=== PATIENT | female | born 1945 | race African-American/Black ===

== ENCOUNTER 2016-11-26 04:19 | Inpatient (IN) | payer MEDICARE, MEDICAID ==
[2016-11-26] VITALS (9 sets, daily range): BP systolic 78–114; BP diastolic 55–65
[~2016-11-26] VITALS: Ht 160 cm; Wt 70.8 kg
[2016-11-26 05:05] LABS: BASOPHILS % (AUTO) 1.3 % (0.0-2.0); EOSINOPHILS % (AUTO) 1.9 % (0.0-3.0); LYMPHOCYTES % (AUTO) 19.1 % (20.0-45.0); MEAN CORPUSCULAR HEMOGLOBIN 29.4 PG (27.0-31.0); MEAN CORPUSCULAR HGB CONC 31.5 G/DL (32.0-36.0); MEAN CORPUSCULAR VOLUME 93 FL (80-99); MONOCYTES % (AUTO) 15.4 % (1.0-10.0); NEUTROPHILS % (AUTO) 62.4 % (45.0-75.0); PLATELET COUNT 251 K/UL (150-450); RED BLOOD COUNT 3.72 M/UL (4.20-5.40); RED CELL DISTRIBUTION WIDTH 16.2 % (11.6-14.8); WHITE BLOOD COUNT 7.2 K/UL (4.8-10.8)
[2016-11-26] MEDS ORDERED: FOLIC ACID1 MG ORAL (05:18)
[2016-11-26] MEDS ORDERED: STIOLTO RESPIMAT4 GM IH (05:18)
[2016-11-26] MEDS ORDERED: ZINC SULFATE220 M1 ORAL (05:18)
[2016-11-26] MEDS ORDERED: ALBUTEROL2.5 MG/3 M INH (05:18)
[2016-11-26] MEDS ORDERED: ASPIR 8181 MG ORAL (05:18)
[2016-11-26 05:19] LABS: APPEARANCE,URINE CLEAR; KETONES,URINE NEGATIVE (NEGATIVE); LEUKOCYTE ESTERASE ,URINE NEGATIVE (NEGATIVE); NITRITE,URINE NEGATIVE (NEGATIVE); PH,URINE 5 (4.5-8.0); PROTEIN,URINE 2+ (NEGATIVE); UROBILINOGEN,URINE NORMAL MG/DL (0.0-1.0)
[2016-11-26 05:20] LABS: TROPONIN I < 0.30 ng/mL (<=0.30)
[2016-11-26 05:23] LABS: ALANINE AMINOTRANSFERASE 22 U/L (3-33); ALBUMIN/GLOBULIN RATIO 0.6 (1.0-2.7); ANION GAP 19 (5-15); ASPARTATE AMINO TRANSFERASE 64 U/L (5-40); CALCIUM 9.9 mg/dL (8.6-10.2); CARBON DIOXIDE 23 mEQ/L (20-30); CHLORIDE 96 mEQ/L (98-107); CREATININE 5.2 mg/dL (0.5-0.9); HEMOLYSIS 52; SODIUM 138 mEQ/L (135-145); TOTAL PROTEIN 7.4 g/dL (6.6-8.7)
[2016-11-26 05:34] LABS: CKMB 4.7 ng/mL (< 3.8)
[2016-11-26 05:36] LABS: BACTERIA,URINE FEW /HPF; RBC,URINE 0-2 /HPF (0 - 2); SQUAMOUS EPITHELIAL CELL,UR FEW /LPF (NONE/OCC); WBC,URINE 0-2 /HPF (0 - 2)
[2016-11-26 05:37] LABS: AMORPHOUS SEDIMENT,UR MODERATE /LPF
--- NOTE | 2016-11-26 06:24 | Emergency Room Report ---
History of Present Illness General Chief Complaint: Constipation Source: EMS (ANDRIY VARGAS M.D.) Source: Patient, Family Member (Ramon Brown M.D.) Present Illness HPI 71-year-old female presents ED for evaluation. Daughter at bedside states that patient has been constipated times one week. Notes history of constipation but states that she called 911 because the patient was vomiting. Patient denies any fevers or chills. States her abdomen feels hard. Denies any chest pain or shortness of breath. Notes history of lung CA. Patient is currently in hospice care. Per EMS patient is also noted to be hypotensive. No aggravating or relieving factors. Denies any other associated symptom (ANDRIY VARGAS M.D.) HPI Please see hx by Dr. Vargas. (Ramon Brown M.D.) Allergies: Coded Allergies: No Known Allergies (Unverified , 11/26/16) Patient History Past Medical History: other - lung cancer Pertinent Family History: none Social History: Denies: alcohol use, drug use, smoking Immunizations: UTD Reviewed Nursing Documentation: PMH: Agreed, PSxH: Agreed (ANDRIY VARGAS M.D.) Nursing Documentation-PMH Hx Cardiac Problems: Yes - TRIPLE BYPASS Hx Cancer: Yes - LUNG CA (ANDRIY VARGAS M.D.) Review of Systems All Other Systems: negative except mentioned in HPI (ANDRIY VARGAS M.D.) Physical Exam Vital Signs Date Time Temp Pulse Resp B/P Pulse Ox O2 Delivery O2 Flow Rate FiO2 11/26/16 04:22 97.5 99 22 74/54 100 Nasal Cannula 2.0 Sp02 EP Interpretation: reviewed, normal General Appearance: alert, GCS 15, non-toxic, mild distress Head: normocephalic Eyes: bilateral eye PERRL, bilateral eye normal inspection ENT: hearing grossly normal, normal pharynx, no angioedema, normal voice Neck: full range of motion, supple/symm/no masses Respiratory: decreased breath sounds, speaking full sentences Cardiovascular #1: regular rate, rhythm, no edema Gastrointestinal: normal bowel sounds, non tender, soft, non-distended, no guarding, no rebound Rectal: deferred Genitourinary: no CVA tenderness Musculoskeletal: normal inspection Neurologic: alert, oriented x3, responsive, motor strength/tone normal, sensory intact, speech normal Psychiatric: normal inspection Skin: normal inspection Lymphatic: normal inspection (ANDRIY VARGAS M.D.) Procedures Critical Care Time Critical Care Time Total Critical Care Time: 45 min bedside evaluation and treatment excludes procedures (EKG). Reason for critical care: hypotension, respiratory distress/BIPAP, discussion with family and patient of level of care Possible complications: hypotension, hypertension, IA, shock, arrhythmias, metabolic acidosis, end organ damage, respiratory failure. Interventions: Fluid boluses, breathing treatments, BIPAP, discussion of level of care, focus on analgesia/enema/ativan/hyperkalemia Course: Patient signed out to me with metastatic lung CA recently removed from hospice care. Hypotensive initially. Fluid bolus given. Possible aspiration when given PO fluids with increased respiratory distress with wheezing. Albuterol given. Mild hyperkalemia also treated with this. Her main complaint of constipation addressed/treated. Hypotensive again - fluids again bolused. Still with resp distress. BIPAP begun. Ativan given. Soime improvement. Able to remove bipap and BP also better. Discussion of code status with daughter and patient . Daughter reluctant to make DNR, but patient in agreement. Discussed with PMD (code status changed). Patient improved. Consultations: nursing staff, EMS, family, PMD, RT Performed by: Dr. Brown Tolerated well condition = serious (Ramon Brown M.D.) Medical Decision Making Diagnostic Impression: Primary Impression: CKD (chronic kidney disease) Qualified Codes: N18.9 - Chronic kidney disease, unspecified Additional Impressions: Weakness Pleural effusion Constipation Qualified Codes: K59.00 - Constipation, unspecified Hyperkalemia Stage 4 lung cancer Qualified Codes: C34.90 - Malignant neoplasm of unspecified part of unspecified bronchus or lung Labs Test 11/26/16 04:45 White Blood Count 7.2 K/UL (4.8-10.8) Red Blood Count 3.72 M/UL (4.20-5.40) Hemoglobin 10.9 G/DL (12.0-16.0) Hematocrit 34.7 % (37.0-47.0) Mean Corpuscular Volume 93 FL (80-99) Mean Corpuscular Hemoglobin 29.4 PG (27.0-31.0) Mean Corpuscular Hemoglobin Concent 31.5 G/DL (32.0-36.0) Red Cell Distribution Width 16.2 % (11.6-14.8) Platelet Count 251 K/UL (150-450) Mean Platelet Volume 8.0 FL (6.5-10.1) Neutrophils (%) (Auto) 62.4 % (45.0-75.0) Lymphocytes (%) (Auto) 19.1 % (20.0-45.0) Monocytes (%) (Auto) 15.4 % (1.0-10.0) Eosinophils (%) (Auto) 1.9 % (0.0-3.0) Basophils (%) (Auto) 1.3 % (0.0-2.0) Urine Color Yellow Urine Appearance Clear Urine pH 5 (4.5-8.0) Urine Specific [place] 1.015 (1.005-1.035) Urine Protein 2+ (NEGATIVE) Urine Glucose (UA) Negative (NEGATIVE) Urine Ketones Negative (NEGATIVE) Urine Occult Blood Negative (NEGATIVE) Urine Nitrite Negative (NEGATIVE) Urine Bilirubin Negative (NEGATIVE) Urine Urobilinogen Normal MG/DL (0.0-1.0) Urine Leukocyte Esterase Negative (NEGATIVE) Urine RBC 0-2 /HPF (0 - 2) Urine WBC 0-2 /HPF (0 - 2) Urine Squamous Epithelial Cells Few /LPF (NONE/OCC) Urine Amorphous Sediment Moderate /LPF (NONE) Urine Bacteria Few /HPF (NONE) Sodium Level 138 mEQ/L (135-145) Potassium Level 5.0 mEQ/L (3.4-4.9) Chloride Level 96 mEQ/L (98-107) Carbon Dioxide Level 23 mEQ/L (20-30) Anion Gap 19 (5-15) Blood Urea Nitrogen 78 mg/dL (7-23) Creatinine 5.2 mg/dL (0.5-0.9) Estimat Glomerular Filtration Rate mL/min (>60) Glucose Level 90 mg/dL (74-106) Lactic Acid Level 1.90 mmol/L (0.66-2.22) Calcium Level 9.9 mg/dL (8.6-10.2) Total Bilirubin 0.7 mg/dL (0.0-1.2) Aspartate Amino Transf (AST/SGOT) 64 U/L (5-40) Alanine Aminotransferase (ALT/SGPT) 22 U/L (3-33) Alkaline Phosphatase 823 U/L (35-104) Total Creatine Kinase 29 U/L (26-140) Creatine Kinase MB 4.7 ng/mL (< 3.8) Creatine Kinase MB Relative Index 16.2 Troponin I < 0.30 ng/mL (<=0.30) Total Protein 7.4 g/dL (6.6-8.7) Albumin 2.8 g/dL (3.5-5.2) Globulin 4.6 g/dL Albumin/Globulin Ratio 0.6 (1.0-2.7) (ANDRIY VARGAS M.D.) ER Course Please review note from Dr. Vargas. CT reviewed by me. See documentation. The patient was given water PO. Some coughing after that. She was suctioned. She is wheezing afterwards. Albuterol was ordered. This will help to treat the mildly high potassium also. Patient also complaining about constipation and an enema was ordered. The patient will be admitted. Dr. Hinojosa is contacted. Enema given. Rectal pain. This treated also. Patient in moderate respiratory distress. BiPAP ordered. Improved with BIPAP and albuterol (also ativan). BP better. Discussed code status with daughter and patient. Dr. Hinojosa notified. See critical care note. (Ramon Brown M.D.) EKG Diagnostic Results Rate: normal Rhythm: NSR ST Segments: no acute changes ASA given to the pt in ED: No (ANDRIY VARGAS M.D.) Rate: tachycardiac ST Segments: no acute changes (Ramon Brown M.D.) Rhythm Strip Diag. Results EP Interpretation: yes Rhythm: NSR, no PVC's, no ectopy (ANDRIY VARGAS M.D.) EP Interpretation: yes Rhythm: no PVC's, no ectopy, other - ST (Ramon Brown M.D.) Chest X-Ray Diagnostic Results EP Interpretation: Yes Findings: no pneumothorax, no acute cardiopulmonary disease, other - large R effusion. portacath noted Number of Views: 1 (ANDRIY VARGAS M.D.) CT/MRI/US Diagnostic Results CT/MRI/US Diagnostic Results : Imaging Test Ordered: abd/pelvis Impression Liver mass Diverticulae/no diverticulitis No bowel obstruction RLL opacities L pulm masses bony mets (Ramon Brown M.D.) Last Vital Signs Date Time Temp Pulse Resp B/P Pulse Ox O2 Delivery O2 Flow Rate FiO2 11/26/16 05:13 98/64 11/26/16 04:59 97.5 92 20 100 Nasal Cannula 2.0 Status: improved (ANDRIY VARGAS M.D.) Last Vital Signs Date Time Temp Pulse Resp B/P Pulse Ox O2 Delivery O2 Flow Rate FiO2 11/26/16 14:00 97.7 95 20 93/60 100 Nasal Cannula 2.0 11/26/16 13:14 50 Status: improved (Ramon Brown M.D.) Disposition: ADMITTED INPATIENT Condition: Critical Referrals: NOT CHOSEN JONA/,REFERRING (PCP) ANDRIY VARGAS M.D. Nov 26, 2016 06:24 Ramon Brown M.D. Nov 26, 2016 07:13
[2016-11-26] MEDS ORDERED: Fleet's Enema 133ml RECTAL ONE (06:45)
[2016-11-26] MEDS ORDERED: Albuterol ud Inhalation HHN ONE ×2 (06:45→08:30)
[2016-11-26] MEDS ORDERED: Ipratropium 0.02% Inh Soln 2.5ml UD HHN ONE (06:45)
[2016-11-26] MEDS ORDERED: Lidocaine HCl 2% Jelly 5ml Tube TOPIC ONE (07:45)
[2016-11-26] MEDS ORDERED: Ketorolac 30mg Inj IV ONE (08:15)
[2016-11-26] MEDS ORDERED: Mylanta II UD 30ml ORAL PRN (08:30)
[2016-11-26] MEDS ORDERED: Morphine Sulfate 2mg/ml Inj IVP PRN (08:30)
[2016-11-26] MEDS ORDERED: Miralax 17gm pkt ORAL PRN (08:30)
[2016-11-26] MEDS ORDERED: LORazepam Inj 2mg/ml 1ml IV PRN (08:30)
[2016-11-26] MEDS ORDERED: Zolpidem 5mg tab ORAL PRN (08:30)
[2016-11-26] MEDS ORDERED: LORazepam Inj 2mg/ml 1ml IV ONE (09:30)
[2016-11-26] MEDS: Heparin 5000 units/ml inj SUBQ SCH ×2 (09:40→21:23)
--- NOTE | 2016-11-26 11:50 | Diagnostic Imaging Report ---
Indication: Chest pain Technique: One view of the chest Comparison: 11/17/2005 Findings: There is near-complete opacification of the right hemithorax, with rightward shift of mediastinum and elevation right hemidiaphragm, consistent with atelectasis of most of the right lung. There is some residual aerated lung present. The left lung and pleural space are clear. There is a right chest port catheter. There are median sternotomy sutures Impression: Near-complete opacification of the right hemithorax, presumably due to near complete atelectasis of the right lung. Other findings as noted
--- NOTE | 2016-11-26 12:14 | Diagnostic Imaging Report ---
Indication: Abdominal pain Technique: Spiral acquisitions obtained through the abdomen and pelvis. No oral contrast utilized, per emergency room physician request No IV contrast utilized, per referring physician request.. Multiplanar reconstructions were generated. Total dose length product a 60 mGycm. CTDIvol(s) 16 mGy Comparison: Reference made to chest CT dated 11/17/2005 Findings: The included lung bases demonstrate extensive opacification of the visualized right lower lobe. This appears to be due to a combination of mass and consolidation. There is some residual aerated lung at the right lung base, but this is markedly disease. There is partial narrowing of the right mainstem bronchus. There is rightward shift of the mediastinum and elevation of the right hemidiaphragm. A densely calcified subcarinal lymph node is demonstrated. A right chest wall port catheter is demonstrated. The catheter tip is at the cavoatrial junction. There are median sternotomy sutures Multiple small masses are seen at the left lung base, appearing spiculated, peripheral, largest measuring 11 mm long axis dimension. Lack of IV contrast limits assessment of the solid organs. Multiple low-attenuation masses are seen within the liver. The largest of these bridges segments 2, 3, 4A, 4B, and measures 8.8 x 6.4 cm. The gallbladder is distended. The wall is not thickened. There is no biliary ductal dilatation. No definite gallstones. The pancreas, spleen, adrenals, right kidney are unremarkable. The left kidney demonstrates some peripheral calcifications, which may be an old involuted calcified cyst. No renal or neural calculi, hydronephrosis, or hydroureter. The bladder contains a Franklin catheter. Air within the bladder is likely related to the Franklin catheterization. The uterus is not visualized, presumed surgically absent. The appendix is not clearly demonstrated. However, no findings to suggest acute appendicitis are evident. There is colonic diverticulosis. No evidence of diverticulitis. No small bowel distention. No free or loculated intraperitoneal air or fluid is demonstrated. Normal caliber abdominal aorta. The distal esophagus, stomach, duodenum are unremarkable. There are are degenerative changes of the lumbar spine. There are scattered osteoblastic lesions within the spine, sacrum, and pelvis. There is evidence of osteolytic destructive change and possibly a pathologic fracture of the right central 10th rib. Note that the [address] demonstrates a spiculated right upper lobe mass. Impression: Extensive opacification of the visualized right lower lobe. This appears to be due to a combination of mass, consolidation, and atelectasis. There is some narrowing of the right mainstem bronchus, and possibly obstruction of the right upper lobe bronchus, which is not visualized. Multiple masses within the liver, presumably multiple hepatic metastases Multiple osteoblastic lesions within the axial skeleton. Osteolytic lesion of the right 10th rib with possible pathologic fracture. These are likely on the basis of metastases Multiple left lower lobe pulmonary mass lesions, presumably metastases Right chest wall port catheter. Evidence of prior median sternotomy Diverticulosis. No evidence of diverticulitis Other findings as noted, including degenerative spondylosis, probable involuted calcified left renal cyst, Franklin catheter, bladder air presumably secondary to the Franklin catheter, surgically absent uterus This agrees with the preliminary interpretation provided overnight by [facility] teleradiology service. The CT scanner at [facility] is accredited by the [employer] and the scans are performed using protocols designed to limit radiation exposure to as low as reasonably achievable to attain images of sufficient resolution adequate for diagnostic evaluation.
--- NOTE | 2016-11-26 13:55 | History and Physical ---
History of Present Illness General Date patient seen: Nov 26, 2016 Reason for Hospitalization: Constipation Present Illness HPI 71-year-old female with hx of Non-small cell lung cancer diagnosed 12 years ago , she has received chemotherapy for the last many years. She was just discharged from [facility] 3 days ago on Hospice, she presents ED for evaluation of her intractable constipation. She has not been eating and had some vomiting. Per EMS she was also noted to be hypotensive. Patient looks chronically ill, can communicate her needs. Allergies: Coded Allergies: No Known Allergies (Unverified , 11/26/16) Medication History Scheduled Aspirin* (Aspir 81*), 81 MG ORAL DAILY, (Reported) Folic Acid* (Folic Acid*), 1 MG ORAL DAILY, (Reported) Zinc Sulfate (Zinc Sulfate*), 220 MG ORAL DAILY, (Reported) Scheduled PRN Albuterol Sulfate* (Albuterol Sulfate Hhn*), Unknown Dose INH Q4H PRN for Shortness of Breath, (Reported) Miscellaneous Medications Tiotropium Br/Olodaterol HCl (Stiolto Respimat Inhal [place]), 4 GM IH, (Reported) Patient History Healthcare decision maker Resuscitation status Advanced Directive on File Past Medical/Surgical History Past Medical/Surgical History: (1) Stage 4 lung cancer Review of Systems All Other Systems: negative except mentioned in HPI Physical Exam General Appearance: WD/WN Lines, tubes and drains: peripheral, central line HEENT: normocephalic, atraumatic Neck: non-tender, normal alignment Respiratory/Chest: chest wall non-tender, lungs clear Cardiovascular/Chest: normal peripheral pulses, normal rate Abdomen: normal bowel sounds, non tender Genitourinary/Rectal: normal genital exam, normal rectal exam Skin Exam: normal pigmentation Neurologic: resident manager II-XII grossly normal Last 24 Hour Vital Signs Date Time Temp Pulse Resp B/P Pulse Ox O2 Delivery O2 Flow Rate FiO2 11/26/16 13:14 97.5 99 19 87/57 100 Nasal Cannula 3.0 50 11/26/16 12:45 99 19 87/57 100 Nasal Cannula 3.0 11/26/16 10:48 101 22 93/59 95 Nasal Cannula 4.0 11/26/16 09:15 114 30 100 Facial 50 11/26/16 08:51 98 20 100 Nasal Cannula 2.0 28 11/26/16 08:44 97.5 102 27 92/60 93 Nasal Cannula 4.0 11/26/16 08:43 97.5 11/26/16 08:42 97.5 11/26/16 08:35 95 18 100 Nasal Cannula 2.0 28 11/26/16 06:55 94 20 100 Nasal Cannula 2.0 28 11/26/16 06:48 97.5 91 20 109/65 100 Nasal Cannula 2.0 11/26/16 06:40 91 18 Nasal Cannula 2.0 28 11/26/16 06:40 91 18 100 Nasal Cannula 2.0 28 11/26/16 05:13 98/64 11/26/16 04:59 97.5 92 20 78/55 100 Nasal Cannula 2.0 11/26/16 04:22 97.5 99 22 74/54 100 Nasal Cannula 2.0 Intake and Output 11/25/16 11/26/16 19:00 07:00 Intake Total 1000 ml Output Total 20 ml Balance 980 ml Intake IV Total 1000 ml Output Urine Total 20 ml Laboratory Tests Test 11/26/16 04:45 11/26/16 06:02 White Blood Count 7.2 K/UL (4.8-10.8) Red Blood Count 3.72 M/UL (4.20-5.40) L Hemoglobin 10.9 G/DL (12.0-16.0) L Hematocrit 34.7 % (37.0-47.0) L Mean Corpuscular Volume 93 FL (80-99) Mean Corpuscular Hemoglobin 29.4 PG (27.0-31.0) Mean Corpuscular Hemoglobin Concent 31.5 G/DL (32.0-36.0) L Red Cell Distribution Width 16.2 % (11.6-14.8) H Platelet Count 251 K/UL (150-450) Mean Platelet Volume 8.0 FL (6.5-10.1) Neutrophils (%) (Auto) 62.4 % (45.0-75.0) Lymphocytes (%) (Auto) 19.1 % (20.0-45.0) L Monocytes (%) (Auto) 15.4 % (1.0-10.0) H Eosinophils (%) (Auto) 1.9 % (0.0-3.0) Basophils (%) (Auto) 1.3 % (0.0-2.0) Urine Color Yellow Urine Appearance Clear Urine pH 5 (4.5-8.0) Urine Specific [place] 1.015 (1.005-1.035) Urine Protein 2+ (NEGATIVE) H Urine Glucose (UA) Negative (NEGATIVE) Urine Ketones Negative (NEGATIVE) Urine Occult Blood Negative (NEGATIVE) Urine Nitrite Negative (NEGATIVE) Urine Bilirubin Negative (NEGATIVE) Urine Urobilinogen Normal MG/DL (0.0-1.0) Urine Leukocyte Esterase Negative (NEGATIVE) Urine RBC 0-2 /HPF (0 - 2) Urine WBC 0-2 /HPF (0 - 2) Urine Squamous Epithelial Cells Few /LPF (NONE/OCC) Urine Amorphous Sediment Moderate /LPF (NONE) H Urine Bacteria Few /HPF (NONE) Sodium Level 138 mEQ/L (135-145) Potassium Level 5.0 mEQ/L (3.4-4.9) H Chloride Level 96 mEQ/L (98-107) L Carbon Dioxide Level 23 mEQ/L (20-30) Anion Gap 19 (5-15) H Blood Urea Nitrogen 78 mg/dL (7-23) H Creatinine 5.2 mg/dL (0.5-0.9) H Estimat Glomerular Filtration Rate mL/min (>60) Glucose Level 90 mg/dL (74-106) Lactic Acid Level 1.90 mmol/L (0.66-2.22) Calcium Level 9.9 mg/dL (8.6-10.2) Total Bilirubin 0.7 mg/dL (0.0-1.2) Aspartate Amino Transf (AST/SGOT) 64 U/L (5-40) H Alanine Aminotransferase (ALT/SGPT) 22 U/L (3-33) Alkaline Phosphatase 823 U/L (35-104) H Total Creatine Kinase 29 U/L (26-140) Creatine Kinase MB 4.7 ng/mL (< 3.8) H Creatine Kinase MB Relative Index 16.2 Troponin I < 0.30 ng/mL (<=0.30) Total Protein 7.4 g/dL (6.6-8.7) Albumin 2.8 g/dL (3.5-5.2) L Globulin 4.6 g/dL Albumin/Globulin Ratio 0.6 (1.0-2.7) L Ammonia 30 umol/L (11-51) Height (Feet): 5 Height (Inches): 3.00 Weight (Pounds): 156 Medications Current Medications Medications (Trade) Dose Ordered Sig/Max Route PRN Reason Start Time Stop Time Status Last Admin Dose Admin Acetaminophen (Tylenol) 650 mg Q4H PRN ORAL fever 11/26/16 08:30 12/26/16 08:29 Al Hydroxide/Mg Hydroxide (Mylanta II) 30 ml Q6H PRN ORAL dyspepsia 11/26/16 08:30 12/26/16 08:29 Clonidine HCl (Catapres) 0.1 mg Q4H PRN ORAL For High Blood Pressure 11/26/16 08:30 12/26/16 08:29 Dextrose (Dextrose 50%) STAT PRN IV Hypoglycemia 11/26/16 08:30 12/26/16 08:29 Heparin Sodium (Porcine) (Heparin 5000 units/ml) 5,000 units EVERY 12 HOURS SUBQ 11/26/16 09:00 12/26/16 08:59 11/26/16 09:40 Lorazepam (Ativan 2mg/ml 1ml) 0.5 mg Q4H PRN IV For Anxiety 11/26/16 08:30 12/03/16 08:29 Morphine Sulfate (Morphine Sulfate) 1 mg EVERY 4 HOURS PRN IVP For Pain 11/26/16 08:30 12/03/16 08:29 Ondansetron HCl (Zofran) 4 mg Q6H PRN IVP Nausea & Vomiting 11/26/16 08:30 12/26/16 08:29 Polyethylene Glycol (Miralax) 17 gm HSPRN PRN ORAL Constipation 11/26/16 08:30 12/26/16 08:29 Zolpidem Tartrate (Ambien) 5 mg HSPRN PRN ORAL Insomnia 11/26/16 08:30 12/26/16 08:29 Assessment/Plan Problem List: (1) Constipation ICD Codes: K59.00 - Constipation, unspecified SNOMED: 59519706 (2) Stage 4 lung cancer ICD Codes: C34.90 - Malignant neoplasm of unspecified part of unspecified bronchus or lung SNOMED: 524255775 (3) Pleural effusion ICD Codes: J90 - Pleural effusion, not elsewhere classified SNOMED: 54614150 (4) CKD (chronic kidney disease) ICD Codes: N18.9 - Chronic kidney disease, unspecified SNOMED: 726159342 (5) Hyperkalemia ICD Codes: E87.5 - Hyperkalemia SNOMED: 84421520 Assessment/Plan IV fluids laxatives check electrolytes DNR renal evaluation check electrolytes. ANA PAUL Nov 26, 2016 13:55
--- NOTE | 2016-11-26 14:25 | Diagnostic Imaging Report ---
Indication: Abnormal renal function tests Technique: Grayscale and duplex images of the kidneys, retroperitoneum, and bladder were obtained. Comparison:Reference made to CT scan of earlier the same day Findings: Right kidney measures 9.4 cm in length. Left kidney measures 9.6 cm in length. Both kidneys demonstrate normal echogenicity. No hydronephrosis. Echogenic focus is seen in the left renal sinus. This is probably artifactual, as no calculi are demonstrated on recent CT scan.. Normal inferior vena cava. Bladder is empty, contains a Franklin catheter. Impression: Negative for hydronephrosis Empty bladder, containing a Franklin catheter.
[2016-11-26 14:30] LABS: MAGNESIUM 2.2 mg/dL (1.7-2.5); URIC ACID 20.5 mg/dL (3.0-7.5)
[2016-11-26] MEDS: D5NS 1,000 ML IV SCH (15:46)
[2016-11-26] MEDS: Lactulose 20gm/30ml UDC ORAL SCH ×2 (17:12→21:22)
[2016-11-26] MEDS: Docusate 100mg tablet ORAL SCH ×2 (17:13→21:22)
[2016-11-26] MEDS ORDERED: Ipratropium 0.02% Inh Soln 2.5ml UD HHN PRN (20:30)
[2016-11-26] MEDS ORDERED: Miralax 17gm pkt ORAL SCH (21:00)
[2016-11-26] MEDS ORDERED: Albuterol ud Inhalation HHN PRN (21:00)
[2016-11-26] MEDS: DuoNeb 0.5-3(2.5)mg/3ml neb HHN PRN (23:08)
[2016-11-27] VITALS: BP 98/42
[2016-11-27] MEDS: DuoNeb 0.5-3(2.5)mg/3ml neb HHN PRN ×5 (01:27→23:34)
[2016-11-27 04:00] VITALS: BP 92/54
[2016-11-27] MEDS: D5NS 1,000 ML IV SCH ×2 (04:21→17:00)
[2016-11-27] MEDS ORDERED: D5NS 1,000 ML IV SCH (06:30)
[2016-11-27 08:00] VITALS: BP_SYST 91; BP_SYST 92; BP_DIAS 54; BP_DIAS 62
[2016-11-27] MEDS ORDERED: Zolpidem 5mg tab ORAL PRN (08:30)
[2016-11-27] MEDS ORDERED: Mylanta II UD 30ml ORAL PRN (08:30)
[2016-11-27] MEDS ORDERED: Miralax 17gm pkt ORAL PRN (08:30)
[2016-11-27] MEDS ORDERED: Morphine Sulfate 2mg/ml Inj IVP PRN (09:00)
[2016-11-27] MEDS: Lactulose 20gm/30ml UDC ORAL SCH ×3 (09:58→18:00)
[2016-11-27] MEDS: Docusate 100mg tablet ORAL SCH ×3 (09:59→18:15)
[2016-11-27] MEDS: Heparin 5000 units/ml inj SUBQ SCH ×2 (10:10→21:00)
[2016-11-27 12:00] VITALS: BP 94/58
--- NOTE | 2016-11-27 15:41 | Consultation ---
Consult Note Consult Note 71-year-old female presents ED for evaluation. Daughter at bedside states that patient has been constipated times one week. Notes history of constipation but states that she called 911 because the patient was vomiting. Patient denies any fevers or chills. States her abdomen feels hard. Denies any chest pain or shortness of breath. Notes history of lung CA. Patient is currently in hospice care. Per EMS patient is also noted to be hypotensive. No aggravating or relieving factors. Denies any other associated symptom patient examined- data reviewed Assessment/Plan status - CKD (chronic kidney disease), by history - Constipation - Stage 4 lung cancer - Pleural effusion - Hyperkalemia Plan: Avoid nephrotoxics- Optimize pulmonary status monitor renal parameters will discuss the extend of aggressive treatment & dialysis MARY FRANKLIN Nov 27, 2016 15:41
[2016-11-27 16:00] VITALS: BP 99/55
--- NOTE | 2016-11-27 16:34 | Pulmonology Progress Note ---
Assessment/Plan Problems: (1) Constipation (2) Stage 4 lung cancer (3) Pleural effusion (4) CKD (chronic kidney disease) (5) Hyperkalemia Assessment/Plan titrate fio2 to sat of 92% ate this morning had just one bm had a conversation with daughter at the bed site about plan of care. Subjective ROS Limited/Unobtainable: No Constitutional: Reports: no symptoms Respiratory: Reports: no symptoms Cardiovascular: Reports: no symptoms Allergies: Coded Allergies: No Known Allergies (Unverified , 11/26/16) Objective Last 24 Hour Vital Signs Date Time Temp Pulse Resp B/P Pulse Ox O2 Delivery O2 Flow Rate FiO2 11/27/16 16:05 32 11/27/16 16:05 109 24 96 Nasal Cannula 3.0 32 11/27/16 16:05 109 25 96 Nasal Cannula 3.0 32 11/27/16 12:00 97.9 99 24 94/58 97 Nasal Cannula 5.0 11/27/16 09:32 107 32 95 Bi-pap 50 11/27/16 09:22 108 32 95 Bi-pap 50 11/27/16 09:22 50 11/27/16 09:17 99 40 100 Facial 50 11/27/16 08:41 100 Bi-pap 50 11/27/16 08:41 Bi-pap 50 11/27/16 08:41 99 18 Bi-pap 50 11/27/16 08:41 99 31 100 Facial 50 11/27/16 08:00 97.9 92 22 91/62 100 Bi-pap 50 11/27/16 08:00 97.9 92 22 91/62 100 Room Air 11/27/16 04:00 96.8 104 20 92/54 92 Bi-pap 11/27/16 02:48 98 24 100 Facial 50 11/27/16 01:26 107 32 95 Bi-pap 50 11/27/16 01:25 108 32 95 Nasal Cannula 2.0 11/27/16 01:18 103 33 94 Facial 50 11/27/16 00:00 97.2 106 22 98/42 96 Nasal Cannula 11/26/16 23:45 106 11/26/16 23:10 102 20 96 Nasal Cannula 2.0 11/26/16 23:09 100 18 95 Nasal Cannula 2.0 11/26/16 20:06 93 Nasal Cannula 5.0 11/26/16 20:06 Nasal Cannula 5.0 11/26/16 20:05 108 18 Nasal Cannula 5.0 28 11/26/16 20:00 97.4 104 32 82/56 95 Nasal Cannula 5.0 11/26/16 20:00 102 Intake and Output 11/26/16 11/27/16 19:00 07:00 Intake Total 487.5 ml Output Total 400 ml 150 ml Balance -400 ml 337.5 ml IV Total 487.5 ml Output Urine Total 400 ml 150 ml General Appearance: WD/WN HEENT: normocephalic, atraumatic Respiratory/Chest: chest wall non-tender, lungs clear Cardiovascular: normal peripheral pulses, normal rate Abdomen: normal bowel sounds, soft, non tender Genitourinary: normal external genitalia Extremities: no clubbing Skin: no rash Microbiology Date/Time Source Procedure Growth Status 11/26/16 04:45 Blood Blood Culture - Preliminary NO GROWTH AFTER 24 HOURS Resulted 11/26/16 04:30 Blood Blood Culture - Preliminary NO GROWTH AFTER 24 HOURS Resulted Laboratory Tests 11/26/16 17:35: Plasma/Serum Osmolality [Pending], Free Triiodothyronine 1.3L, Cortisol 15.0 11/27/16 06:00: Urine Osmolality [Pending] Current Medications Medications (Trade) Dose Ordered Sig/Max Route PRN Reason Start Time Stop Time Status Last Admin Dose Admin Acetaminophen (Tylenol) 650 mg Q4H PRN ORAL fever 11/27/16 08:30 12/27/16 08:29 Albuterol/ Ipratropium (DuoNeb 0.5-3(2.5)mg/3ml) 3 ml Q4H PRN HHN Shortness of Breath 11/27/16 06:30 12/02/16 06:29 11/27/16 16:13 Clonidine HCl (Catapres) 0.1 mg Q4H PRN ORAL For High Blood Pressure 11/27/16 08:30 12/27/16 08:29 Dextrose (Dextrose 50%) STAT PRN IV Hypoglycemia 11/27/16 08:30 12/27/16 08:29 Dextrose/Sodium Chloride (D5ns) 1,000 ml @ 50 mls/hr Q20H IV 11/28/16 06:30 12/28/16 06:29 UNV Docusate Sodium (Colace) 100 mg THREE TIMES A DAY ORAL 11/27/16 09:00 12/27/16 08:59 11/27/16 09:59 Heparin Sodium (Porcine) (Heparin 5000 units/ml) 5,000 units EVERY 12 HOURS SUBQ 11/27/16 09:00 12/27/16 08:59 11/27/16 10:10 Lactulose (Cephulac) 30 gm THREE TIMES A DAY ORAL 11/27/16 09:00 12/27/16 08:59 11/27/16 09:58 Lorazepam (Ativan 2mg/ml 1ml) 0.5 mg Q4H PRN IV For Anxiety 11/27/16 08:30 12/04/16 08:29 Mineral Oil (Fleet's Mineral Oil Enema) 133 ml EVERY OTHER DAY RECTAL 11/28/16 09:00 12/28/16 08:59 Morphine Sulfate (Morphine Sulfate) 1 mg Q4H PRN IVP For Pain 11/27/16 09:00 12/04/16 08:59 Ondansetron HCl (Zofran) 4 mg Q6H PRN IVP Nausea & Vomiting 11/27/16 08:30 12/27/16 08:29 Polyethylene Glycol (Miralax) 17 gm BEDTIME ORAL 11/27/16 21:00 12/27/16 20:59 Polyethylene Glycol (Miralax) 17 gm HSPRN PRN ORAL Constipation 11/27/16 08:30 12/27/16 08:29 Sennosides (Senokot) 8.6 mg DAILY ORAL 11/27/16 09:00 12/27/16 08:59 11/27/16 09:58 Zolpidem Tartrate 5 mg 5 mg HSPRN PRN ORAL Insomnia 11/27/16 08:30 12/27/16 08:29 ANA PAUL Nov 27, 2016 16:34
[2016-11-27 20:00] VITALS: BP 100/50
[2016-11-27] MEDS ORDERED: Miralax 17gm pkt ORAL SCH (21:00)
[2016-11-28] VITALS (8 sets, daily range): BP systolic 58–125; BP diastolic 22–67
[2016-11-28] MEDS: LORazepam Inj 2mg/ml 1ml IV PRN ×2 (03:00→06:50)
[2016-11-28] MEDS: D5NS 1,000 ML IV SCH (03:45)
[2016-11-28] MEDS: DuoNeb 0.5-3(2.5)mg/3ml neb HHN PRN ×2 (07:26→11:31)
[2016-11-28] MEDS: Docusate 100mg tablet ORAL SCH ×3 (09:00→18:00)
[2016-11-28] MEDS: Lactulose 20gm/30ml UDC ORAL SCH ×3 (09:00→18:00)
[2016-11-28] MEDS ORDERED: Fleet's Mineral Oil Enema RECTAL SCH ×2 (09:00)
[2016-11-28] MEDS: Heparin 5000 units/ml inj SUBQ SCH (09:13)
--- NOTE | 2016-11-28 13:29 | Pulmonology Progress Note ---
Assessment/Plan Problems: (1) Constipation (2) Stage 4 lung cancer (3) Pleural effusion (4) CKD (chronic kidney disease) (5) Hyperkalemia Assessment/Plan titrate fio2 to sat of 92% ate this morning had just one bm had a conversation with daughter at the bed site about plan of care. talked again to pts daughter and sister at the bed site. they are aware of the terminal nature of her illness. they agreed with morphine drip. Subjective ROS Limited/Unobtainable: No Interval Events: comfortable Allergies: Coded Allergies: No Known Allergies (Unverified , 11/26/16) Objective Last 24 Hour Vital Signs Date Time Temp Pulse Resp B/P Pulse Ox O2 Delivery O2 Flow Rate FiO2 11/28/16 11:32 68 26 98 Nasal Cannula 4.0 36 11/28/16 11:28 68 25 96 Nasal Cannula 4.0 36 11/28/16 11:28 36 11/28/16 10:00 63 22 78/41 97 Bi-pap 11/28/16 09:30 63 22 76/39 97 Bi-pap 11/28/16 09:04 122 30 94 Facial 45 11/28/16 08:00 96.1 100 23 81/48 97 5.0 11/28/16 07:27 115 25 98 Nasal Cannula 4.0 36 11/28/16 07:22 114 24 96 Nasal Cannula 4.0 36 11/28/16 07:22 36 11/28/16 07:12 96 Nasal Cannula 4.0 36 11/28/16 07:12 Nasal Cannula 4.0 36 11/28/16 07:11 102 18 Nasal Cannula 4.0 11/28/16 04:49 102 19 96 Facial 45 11/28/16 04:00 97.0 109 18 80/50 93 Bi-pap 11/28/16 03:03 114 33 97 Facial 45 11/28/16 00:00 97.2 115 18 85/44 89 Simple Mask 11/27/16 23:39 116 25 99 Nasal Cannula 4.0 11/27/16 23:32 114 24 94 Nasal Cannula 4.0 11/27/16 20:26 Nasal Cannula 4.0 11/27/16 20:26 97 Nasal Cannula 4.0 11/27/16 20:25 105 18 Nasal Cannula 4.0 11/27/16 20:00 97.0 117 18 100/50 96 Nasal Cannula 5.0 11/27/16 17:16 115 28 93 Facial 50 11/27/16 16:05 32 11/27/16 16:05 109 24 96 Nasal Cannula 3.0 32 11/27/16 16:05 109 25 96 Nasal Cannula 3.0 32 11/27/16 16:00 97.9 107 17 99/55 99 Nasal Cannula 5.0 Intake and Output 11/27/16 11/28/16 19:00 07:00 Intake Total 1010 ml 590 ml Output Total 50 ml 425 ml Balance 960 ml 165 ml Intake Oral 410 ml 240 ml IV Total 600 ml 350 ml Output Urine Total 50 ml 425 ml # Bowel Movements 2 6 General Appearance: WD/WN HEENT: normocephalic, atraumatic Respiratory/Chest: chest wall non-tender, lungs clear Abdomen: normal bowel sounds, soft, non tender Extremities: no cyanosis Skin: no rash Microbiology Date/Time Source Procedure Growth Status 11/26/16 04:45 Blood Blood Culture - Preliminary NO GROWTH AFTER 48 HOURS Resulted 11/26/16 04:30 Blood Blood Culture - Preliminary NO GROWTH AFTER 48 HOURS Resulted Current Medications Medications (Trade) Dose Ordered Sig/Max Route PRN Reason Start Time Stop Time Status Last Admin Dose Admin Acetaminophen (Tylenol) 650 mg Q4H PRN ORAL fever 11/27/16 08:30 12/27/16 08:29 Albuterol/ Ipratropium (DuoNeb 0.5-3(2.5)mg/3ml) 3 ml Q4H PRN HHN Shortness of Breath 11/27/16 06:30 12/02/16 06:29 11/28/16 11:31 Clonidine HCl (Catapres) 0.1 mg Q4H PRN ORAL For High Blood Pressure 11/27/16 08:30 12/27/16 08:29 Dextrose (Dextrose 50%) STAT PRN IV Hypoglycemia 11/27/16 08:30 12/27/16 08:29 Dextrose/Sodium Chloride (D5ns) 1,000 ml @ 50 mls/hr Q20H IV 11/27/16 17:00 12/27/16 16:59 11/28/16 03:45 Docusate Sodium (Colace) 100 mg THREE TIMES A DAY ORAL 11/27/16 09:00 12/27/16 08:59 11/27/16 18:15 Heparin Sodium (Porcine) (Heparin 5000 units/ml) 5,000 units EVERY 12 HOURS SUBQ 11/27/16 09:00 12/27/16 08:59 11/28/16 09:13 Lactulose (Cephulac) 30 gm THREE TIMES A DAY ORAL 11/27/16 09:00 12/27/16 08:59 11/27/16 09:58 Lorazepam (Ativan 2mg/ml 1ml) 0.5 mg Q4H PRN IV For Anxiety 11/27/16 08:30 12/04/16 08:29 11/28/16 06:50 Mineral Oil (Fleet's Mineral Oil Enema) 133 ml EVERY OTHER DAY RECTAL 11/28/16 09:00 12/28/16 08:59 Morphine Sulfate (Morphine Sulfate) 1 mg Q4H PRN IVP For Pain 11/27/16 09:00 12/04/16 08:59 Ondansetron HCl (Zofran) 4 mg Q6H PRN IVP Nausea & Vomiting 11/27/16 08:30 12/27/16 08:29 Polyethylene Glycol (Miralax) 17 gm BEDTIME ORAL 11/27/16 21:00 12/27/16 20:59 Polyethylene Glycol (Miralax) 17 gm HSPRN PRN ORAL Constipation 11/27/16 08:30 12/27/16 08:29 Sennosides (Senokot) 8.6 mg DAILY ORAL 11/27/16 09:00 12/27/16 08:59 11/27/16 09:58 Zolpidem Tartrate 5 mg 5 mg HSPRN PRN ORAL Insomnia 11/27/16 08:30 12/27/16 08:29 ANA PAUL Nov 28, 2016 13:29
[2016-11-28] MEDS ORDERED: Haloperidol 5mg/ml Inj IM PRN (13:30)
[2016-11-28] MEDS ORDERED: Artificial Tears 1.4% Op Soln BOTH EYES PRN (13:30)
[2016-11-28] MEDS ORDERED: Rate Change Narcotic Drip MISC PRN (13:30)
[2016-11-28] MEDS ORDERED: Glycopyrrolate 0.2mg/ml 1ml Vial IV PRN (13:30)
[2016-11-28] MEDS ORDERED: PCA Morphine 1mg/ml 30 ML IV PRN (13:30)
[2016-11-28] MEDS ORDERED: Prochlorperazine 10mg tab ORAL PRN (13:30)
[2016-11-28] MEDS ORDERED: Morphine Sulfate 4mg/ml Inj SUBQ PRN (14:00)
--- NOTE | 2016-11-28 14:01 | General Progress Note ---
Assessment/Plan Status: deteriorating Status Narrative Hypotensive Assessment/Plan status - CKD (chronic kidney disease), by history - Constipation - Stage 4 lung cancer - Pleural effusion - Hyperkalemia Plan: on comfort care- preterminal Subjective ROS Limited/Unobtainable: No Constitutional: Reports: malaise, weakness Allergies: Coded Allergies: No Known Allergies (Unverified , 11/26/16) Objective Last 24 Hour Vital Signs Date Time Temp Pulse Resp B/P Pulse Ox O2 Delivery O2 Flow Rate FiO2 11/28/16 11:32 68 26 98 Nasal Cannula 4.0 36 11/28/16 11:28 68 25 96 Nasal Cannula 4.0 36 11/28/16 11:28 36 11/28/16 10:00 63 22 78/41 97 Bi-pap 11/28/16 09:30 63 22 76/39 97 Bi-pap 11/28/16 09:04 122 30 94 Facial 45 11/28/16 08:00 96.1 100 23 81/48 97 5.0 11/28/16 07:27 115 25 98 Nasal Cannula 4.0 36 11/28/16 07:22 114 24 96 Nasal Cannula 4.0 36 11/28/16 07:22 36 11/28/16 07:12 96 Nasal Cannula 4.0 36 11/28/16 07:12 Nasal Cannula 4.0 36 11/28/16 07:11 102 18 Nasal Cannula 4.0 11/28/16 04:49 102 19 96 Facial 45 11/28/16 04:00 97.0 109 18 80/50 93 Bi-pap 11/28/16 03:03 114 33 97 Facial 45 11/28/16 00:00 97.2 115 18 85/44 89 Simple Mask 11/27/16 23:39 116 25 99 Nasal Cannula 4.0 11/27/16 23:32 114 24 94 Nasal Cannula 4.0 11/27/16 20:26 Nasal Cannula 4.0 11/27/16 20:26 97 Nasal Cannula 4.0 11/27/16 20:25 105 18 Nasal Cannula 4.0 11/27/16 20:00 97.0 117 18 100/50 96 Nasal Cannula 5.0 11/27/16 17:16 115 28 93 Facial 50 11/27/16 16:05 32 11/27/16 16:05 109 24 96 Nasal Cannula 3.0 32 11/27/16 16:05 109 25 96 Nasal Cannula 3.0 32 11/27/16 16:00 97.9 107 17 99/55 99 Nasal Cannula 5.0 Intake and Output 11/27/16 11/28/16 19:00 07:00 Intake Total 1010 ml 590 ml Output Total 50 ml 425 ml Balance 960 ml 165 ml Intake Oral 410 ml 240 ml IV Total 600 ml 350 ml Output Urine Total 50 ml 425 ml # Bowel Movements 2 6 Height (Feet): 5 Height (Inches): 3.00 Weight (Pounds): 156 General Appearance: mild distress Cardiovascular: tachycardia Respiratory/Chest: decreased breath sounds Abdomen: distended MARY FRANKLIN Nov 28, 2016 14:01
[2016-11-28] MEDS ORDERED: Narcotic Shift Volume MISC SCH (15:00)
[2016-11-28] MEDS ORDERED: Sterile Water For Irrig 2000ml IRRIG ONE (23:14)
--- NOTE | 2016-11-29 14:57 | Discharge Summary ---
Discharge Summary Hospital Course Date of Admission Nov 26, 2016 at 06:05 Date of Discharge Nov 28, 2016 at 23:15 Admitting Diagnosis weakness LACHO Garcia is a 71 year old female who was admitted on Nov 26, 2016 at 06: 05 for Weakness Hospital Course [id number] Discharge Discharge Disposition Patient Discharge Diagnoses: Doimnique Vergara NP Nov 29, 2016 14:57
--- NOTE | 2016-11-30 01:48 | Discharge Summary 2 SIG ---
DATE OF ADMISSION: 11/26/2016 DATE OF DISCHARGE: 11/28/2016 CONSULTANTS: Mohit Johnson M.D. BRIEF SUMMARY: The patient is a 71-year-old female, who presented to ED for evaluation of constipation. The patient has been constipated for a week. The patient's daughter called 911, as she was vomiting and abdomen felt hard. She has a history of lung CA and is on hospice care. On evaluation at ED, she was hypotensive, systolic in 70s. She was in respiratory distress and was placed on BiPAP. Laboratories showed chronic kidney disease with hyperkalemia. CT of the abdomen showed extensive opacification of the right lower lobe with multiple masses within the liver, presumably hepatic metastasis and multiple osteoblastic lesions and osteolytic lesions of the right tenth rib likely with possible pathologic fracture. She was given IV fluids and laxatives. Plan of care was discussed with the patient's daughter and aware of terminal nature of illness. Per family wishes, the patient was placed on hospice/comfort care and was started on morphine drip. The patient eventually . FINAL DIAGNOSES: 1. Stage IV lung cancer. 2. Constipation. 3. Multiple mets to lung, liver, and bone. 4. Hyperkalemia. 5. Pleural effusion. 6. Acute respiratory failure. 7. Acute on chronic renal failure. 8. Pathologic fracture of the right tenth rib. 9. Palliative/comfort care. Kinsey Hinojosa M.D. I have been assigned to dictate discharge summary on this account and I was not involved in the patient's management. Dominique Vergara N.P. DR: JP JOB#: [id number] CC: ALLEN
== END 2016-11-28 23:15 | disposition expired | DRG 189 ==
LOC: EDBD 04:19 → EMR 04:38 → 2W 06:05 → EDBEDREQSVC 09:14 → EDBEDREQ 09:20 → 2W 13:55 → 3E 11-27 00:54
PROC: 5A09357 Assistance with Respiratory Ventilation, Less than 24 Consecutive Hours, Continuous Positive Airway Pressure (ICD-10-PCS; principal; 2016-11-27)
DX: J96.00 Acute respiratory failure, unspecified whether with hypoxia or hypercapnia (principal); N17.9 Acute kidney failure, unspecified; C78.00 Secondary malignant neoplasm of unspecified lung; C78.7 Secondary malignant neoplasm of liver and intrahepatic bile duct; I95.9 Hypotension, unspecified; C34.90 Malignant neoplasm of unspecified part of unspecified bronchus or lung; J90 Pleural effusion, not elsewhere classified; M84.58XA Pathological fracture in neoplastic disease, other specified site, initial encounter for fracture; C79.51 Secondary malignant neoplasm of bone; Z51.5 Encounter for palliative care; Z66 Do not resuscitate; E87.5 Hyperkalemia; K59.00 Constipation, unspecified; N18.9 Chronic kidney disease, unspecified
CPT/HCPCS: 36415; 71010; 74176; 76775; 80053; 81003; 82140; 82436; 82533; 82550; 82553; 83605; 83735; 83930; 83935; 84100; 84133; 84300; 84439; 84481; 84484; 84550; 85025; 87040; 89050; 93005; 94640; 94660; 94664; 94760; J7620